=== PATIENT | male | born 1955 ===

== ENCOUNTER 2017-10-27 02:58 | Inpatient (IN) | payer MEDICAID ==
--- NOTE | 2017-10-27 03:26 | ED PDOC ---
HPI: Abdomen Time Seen by Provider: 10/27/17 03:04 Chief Complaint (Nursing): Abdominal Pain Chief Complaint (Provider): Left Flank Pain History Per: Patient History/Exam Limitations: no limitations Onset/Duration Of Symptoms: Mins (x30) Current Symptoms Are (Timing): Still Present Pain Scale Rating Of: 5 Additional Complaint(s): 62 y/o male with a PMHx of kidney stones presenting for evaluation of left sided flank pain x30 minutes prior to arrival. Patient states pain is a 5/ 10 and denies any associated nausea, vomiting, or urinary symptoms. Patient states that he had been walking and carrying a heavy backpack today and feels it may have contributed to the onset of his pain. Provider suspects patient may be undomiciled. PMD: [facility] Provider Past Medical History Reviewed: Historical Data, Nursing Documentation, Vital Signs Vital Signs: Last Vital Signs Temp 97.7 F 10/27/17 03:00 Pulse 95 H 10/27/17 03:00 Resp 16 10/27/17 03:00 BP 126/79 10/27/17 03:00 Pulse Ox 98 10/27/17 03:29 - Medical History PMH: Kidney Stones - Surgical History Surgical History: No Surg Hx - Family History Family History: States: Unknown Family Hx - Social History Current smoker - smoking cessation education provided: No Alcohol: None Drugs: Denies - Allergies Allergies/Adverse Reactions: Allergies Allergy/AdvReac Type Severity Reaction Status Date / Time No Known Allergies Allergy Verified 10/27/17 03:07 Review of Systems ROS Statement: Except As Marked, All Systems Reviewed And Found Negative Gastrointestinal: Negative for: Nausea, Vomiting Genitourinary Male: Negative for: Dysuria, Frequency, Incontinence Musculoskeletal: Positive for: Other (left flank) Physical Exam - Reviewed Nursing Documentation Reviewed: Yes Vital Signs Reviewed: Yes - Physical Exam Appears: Positive for: Non-toxic, No Acute Distress Head Exam: Positive for: ATRAUMATIC, NORMAL INSPECTION, NORMOCEPHALIC Skin: Positive for: Normal Color, Warm, Dry. Negative for: Rash Eye Exam: Positive for: EOMI, Normal appearance, PERRL Neck: Positive for: Normal, Painless ROM, Supple Cardiovascular/Chest: Positive for: Regular Rate, Rhythm. Negative for: Murmur Respiratory: Positive for: Normal Breath Sounds. Negative for: Respiratory Distress Gastrointestinal/Abdominal: Positive for: Normal Exam, Soft. Negative for: Tenderness Back: Positive for: Normal Inspection. Negative for: L CVA Tenderness, R CVA Tenderness, Vertebral Tenderness Extremity: Positive for: Normal ROM. Negative for: Pedal Edema, Deformity Neurologic/Psych: Positive for: Alert, Oriented. Negative for: Motor/Sensory Deficits - ECG O2 Sat by Pulse Oximetry: 98 (RA) Pulse Ox Interpretation: Normal Medical Decision Making Medical Decision Makin:15 Impression: 62 y/o male with left flank pain Plan: -Urine drug screen -Urine dipstick -Motrin 600mg PO -Accucheck -Urinalysis -Reevaluation 04:30 Urine does not indicate any evidence of kidney stones. Upon provider noting patient of results and discharge status, patient requested to speak to mental health health professional. 05:50 As per crisis, patient will require admission for depression. In providers opinion patient is bed-seeking and malingering as he admitted to being homeless. Patient medical stable for psychiatric admission ----- Scribe Attestation: Documented by Yaya Graham, acting as a scribe for Casey Hart MD. Provider Scribe Attestation: All medical record entries made by the Scribe were at my direction and personally dictated by me. I have reviewed the chart and agree that the record accurately reflects my personal performance of the history, physical exam, medical decision making, and the department course for this patient. I have also personally directed, reviewed, and agree with the discharge instructions and disposition. Disposition - Patient ED Disposition Is Patient to be Admitted: Yes - Disposition Disposition Time: 05:50 Forms: Clutter (Lithuanian) - Pt Status Changed To: Hospital Disposition Of: Inpatient - Admit Certification Admit to Inpatient:: After my assessment, the patient will require hospitalization for at least two midnights. This is because of the severity of symptoms shown, intensity of services needed, and/or the medical risk in this patient being treated as an outpatient.
[2017-10-27 03:59] LABS: SQUAMOUS EPITHIAL 3 /hpf (0-5); URINE BILIRUBIN NEGATIVE (NEGATIVE); URINE BLOOD NEGATIVE (NEGATIVE); URINE CALCIUM OXALATE CRYSTALS OCC /hpf (<OCC); URINE CLARITY CLOUDY (Clear); URINE COLOR AMBER (YELLOW); URINE GLUCOSE (UA) NEG (Normal); URINE LEUKOCYTE ESTERASE NEG Leu/uL (Negative); URINE PROTEIN 30 mg/dL (NEGATIVE)
[2017-10-27 04:18] LABS: BARBITURATES, UR NEGATIVE (NEGATIVE); BENZODIAZEPINES, UR NEGATIVE (NEGATIVE); OPIATES, UR NEGATIVE (NEGATIVE); PHENCYCLIDINE, UR NEGATIVE (NEGATIVE)
[2017-10-27 06:58] LABS: BASO % 0.3 % (0.0-2.0); EOS # 0.1 K/uL (0.0-0.7); EOS % 0.8 % (0.0-4.0); HEMOGLOBIN 14.8 g/dL (12.0-18.0); LYMPH # 2.9 K/uL (1.0-4.3); LYMPH % 25.1 % (20.0-40.0); MEAN CELL VOLUME 97.4 fl (80.0-94.0); MEAN CORPUSCULAR HEMOGLOBIN 32.9 pg (27.0-31.0); MEAN CORPUSCULAR HGB CONC 33.8 g/dL (33.0-37.0); MEAN PLATELET VOLUME 7.4 fl (7.2-11.7); MONO % 8.8 % (0.0-10.0); NEUT # 7.6 K/uL (1.8-7.0); RBC 4.49 Mil/uL (4.40-5.90); RED CELL DISTRIBUTION WIDTH 13.4 % (11.5-14.5); WHITE BLOOD COUNT 11.7 K/uL (4.8-10.8)
[2017-10-27 08:16] VITALS: O2SAT 97
[2017-10-27] MEDS ORDERED: DiphenhydrAMINE 50 mg/ml Inj IM PRN (11:09)
[2017-10-27] MEDS ORDERED: Magnesium Hydroxide Susp 30 ml UD PO PRN (11:09)
[2017-10-27] MEDS ORDERED: Alum-Mag Hydrox-Simethicone Susp (30 mL) PO PRN (11:09)
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
--- NOTE | 2017-10-27 11:24 | CARD ---
APPROVED REPORT <Conclusion> Normal sinus rhythm Normal ECG
--- NOTE | 2017-10-27 14:47 | PCM.BM ---
<Law Pop - Last Filed: 10/27/17 14:45> Treatment Plan Problems - Problems identified on initial assessmt Hopelessness/Helplessness Date Initiated: 10/27/17 Time Initiated: 14:46 Assessment reference: NA Status: Active Self Harm Date Initiated: 10/27/17 Time Initiated: 14:49 Assessment reference: NA Status: Active Suicidal Ideation Date Initiated: 10/27/17 Time Initiated: 14:50 Assessment reference: NA Status: Active Treatment assets and liabiliti Patient Assests: cooperative, educated, ADL independent, physically healthy Patient Liabilities: physical pain, financial problems, other (recent loss) - Milieu Protocol Maintain good personal hygiene: every shift Encourage regular showers, every shift Remind patient to perform daily oral care, every shift Assist patient to perform ADL's Maintain personal safety: every shift Educate patient to report safety concerns to staff, every shift Monitor environment for contraband/sharps Medication safety: Monitor for expected outcome, potential side effects: every shift, Assess barriers to learning: every shift, Assess readiness for medication education: every shift Milieu Narrative: paxil 520mg qhs group and supportive therapy Discharge/Continuing Care - Treatment Team Participation Patient/Family/SO Statement: paxil 520mg qhs group and supportive therapy <Elle Moctezuma - Last Filed: 10/28/17 08:13> - Diagnosis (1) Major depressive disorder Status: Acute Interventions: Medication management, Individual and group therapy, Psychoeducation 10/28/17 08:14 <Radha Gloria - Last Filed: 10/29/17 11:15> Family Contact Family contact: Patient agrees to contact, Family has been contacted by patient , Telephone contact initiated by staff Family contact name: Garrick Yo - significant other Family contacted how many times per week?: 2 Family contact comment: [phone] - Goals for Treatment Patient goals for treatment: Pt to be encouraged to attend activity and clinical groups 3-5x per week to identify at least 2 contributing factors to depression and suicide attempt. Psycho-education to be provided to patient/ family regarding benefits of medications and treatment adherence. Pt to be encouraged to participate in group milieu to develop effective coping skills to reduce depression and free of suicide ideation. Coordinate discharge resource needs by providing referral for psychiatric treatment follow up in the community. Discharge/Continuing Care - Education Needs Education Needs: Patient Medication, Patient Diagnosis/Disease Process, Patient Coping Skills, Patient Placement options, Patient Community resources, Patient Activities of Daily Living, Patient Health Practices/Safety, Patient Personal Hygiene/Grooming, Patient Aftercare Safety Plan - Discharge Discharge Criteria: Free of Suicidal thoughts, Free of agitation, Normal sleep pattern, Ability to care for self, Reduction of target symptoms Discharge to:: Nursing Home - Additional Comments 10/29/17 11:06 Pt seen and discussed in team meeting. Reason for admission reviewed and discussed. Pt reported being admitted due to suicide ideation and depression. Pt reported at the moment he feels "sleepy" and "alright." When asked to provide further information, pt stated "I don't know what it is that I'm feeling right now." Pt denied active HI. Pt expressed vague suicide ideation stating "they come and go." Pt reported having no active plan. Pt's social and medical issues reviewed. Pt reported he resides in [place], [place] but was in [place] visiting his friend. Pt reported he does not know yet if he will be returning to [place] or remain in [place]. Pt is currently homeless. Pt's medications reviewed and discussed. Tx plan reviewed and discussed, pt is agreeable. SW to continue to follow case. - Treatment Team Participation Discussed with Family/SO: No Was Patient/Family/SO present at Treatment Team Meeting: Yes
--- NOTE | 2017-10-27 18:20 | CP.PCM.CON ---
History of Present Illness - History of Present Illness History of Present Illness: 62 yo male with history of depression admitted to [facility] because of suicidal ideation. Review of Systems - Review of Systems All systems: reviewed and no additional remarkable complaints except (aside from those mentioned above, 12 point system review were negative by me) Past Patient History - Tetanus Immunizations Tetanus Immunization: Unknown - Past Social History Smoking Status: Former Smoker Chewing Tobacco Use: No Cigar Use: No Alcohol: Social Drugs: Denies - CARDIAC Hx Cardiac Disorders: No Hx Hypertension: No - PULMONARY Hx Tuberculosis: No - NEUROLOGICAL HX Cerebrovascular Accident: No Hx Seizures: No - RENAL Hx Chronic Kidney Disease: Yes - HEMATOLOGICAL/ONCOLOGICAL Hx Cancer: No Hx Human Immunodeficiency Virus (HIV): No - INTEGUMENTARY Hx Dermatological Problems: No - GASTROINTESTINAL Other/Comment: appendectomy - GENITOURINARY/GYNECOLOGICAL Hx Sexually Transmitted Disorders: No - PSYCHIATRIC Hx Depression: Yes Hx Substance Use: No - SURGICAL HISTORY Hx Surgeries: Yes Hx Appendectomy: Yes - ANESTHESIA Hx Anesthesia: Yes Hx Anesthesia Reactions: No Hx Malignant Hyperthermia: No Meds Allergies/Adverse Reactions: Allergies Allergy/AdvReac Type Severity Reaction Status Date / Time No Known Allergies Allergy Verified 10/27/17 03:07 - Medications Medications: Current Medications Acetaminophen (Tylenol 325mg Tab) 325 mg PO Q4 PRN PRN Reason: Pain, moderate (4-7) Al Hydrox/Mg Hydrox/Simethicone (Maalox Plus 30 Ml) 30 ml PO Q4 PRN PRN Reason: Dyspepsia Diphenhydramine HCl (Benadryl) 50 mg IM Q6 PRN PRN Reason: Extrapyramidal S/S Unable PO Diphenhydramine HCl (Benadryl) 50 mg PO Q6 PRN PRN Reason: Extrapyramidal Symptoms Haloperidol (Haldol) 2 mg PO Q4 PRN PRN Reason: Agitation Haloperidol Lactate (Haldol) 2 mg IM Q4 PRN PRN Reason: Agitation, Unable to Take PO Lorazepam (Ativan) 1 mg PO Q8 PRN PRN Reason: Anxiety/Agitation Lorazepam (Ativan) 1 mg IM Q4 PRN PRN Reason: Anxiety/Agitation,Unable PO Magnesium Hydroxide (Milk Of Magnesia) 30 ml PO HS PRN PRN Reason: Constipation Paroxetine HCl (Paxil) 20 mg PO HS ROEL Physical Exam - Constitutional Appears: No Acute Distress - Head Exam Head Exam: ATRAUMATIC - Eye Exam Eye Exam: absent: Scleral icterus - ENT Exam ENT Exam: Mucous Membranes Moist - Neck Exam Neck exam: Negative for: Meningismus - Respiratory Exam Respiratory Exam: absent: Rales, Rhonchi, Wheezes, Respiratory Distress - Cardiovascular Exam Cardiovascular Exam: REGULAR RHYTHM, +S1, +S2 - GI/Abdominal Exam GI & Abdominal Exam: Soft. absent: Tenderness - Rectal Exam Rectal Exam: Deferred - Extremities Exam Extremities exam: Negative for: calf tenderness, pedal edema - Back Exam Back exam: NORMAL INSPECTION - Neurological Exam Neurological exam: Alert, Oriented x3 - Psychiatric Exam Psychiatric exam: Normal Affect - Skin Skin Exam: Dry, Intact Results - Vital Signs Recent Vital Signs: Last Vital Signs Temp 97.7 F 10/27/17 16:47 Pulse 68 10/27/17 16:47 Resp 19 10/27/17 16:47 BP 122/61 10/27/17 16:47 Pulse Ox 97 10/27/17 08:00 - Labs Result Diagrams: 10/27/17 06:40 Labs: Laboratory Results - last 24 hr 10/27/17 10/27/17 10/27/17 03:33 03:35 03:35 WBC RBC Hgb Hct MCV MCH MCHC RDW Plt Count MPV Neut % (Auto) Lymph % (Auto) [place] % (Auto) Eos % (Auto) Baso % (Auto) Neut # (Auto) Lymph # (Auto) [place] # (Auto) Eos # (Auto) Baso # (Auto) POC Glucose (mg/dL) 97 Urine Color Jody Urine Clarity Cloudy Urine pH 5.0 Ur Specific [place] 1.030 Urine Protein 30 Urine Glucose (UA) Neg Urine Ketones 20 Urine Blood Negative Urine Nitrate Negative Urine Bilirubin Negative Urine Urobilinogen 4.0 Ur Leukocyte Esterase Neg Urine RBC (Auto) 5 H Urine Microscopic WBC 4 Ur Squamous Epith Cells 3 Calcium Oxalate Crystal Occ H Hyaline Casts 11-20 H Urine Opiates Screen Negative Urine Methadone Screen Negative Ur Barbiturates Screen Negative Ur Phencyclidine Scrn Negative Ur Amphetamines Screen Negative U Benzodiazepines Scrn Negative U Oth Cocaine Metabols Negative U Cannabinoids Screen Negative Alcohol, Quantitative 10/27/17 10/27/17 06:40 06:40 WBC 11.7 H RBC 4.49 Hgb 14.8 Hct 43.7 MCV 97.4 H MCH 32.9 H MCHC 33.8 RDW 13.4 Plt Count 242 MPV 7.4 Neut % (Auto) 65.0 Lymph % (Auto) 25.1 [place] % (Auto) 8.8 Eos % (Auto) 0.8 Baso % (Auto) 0.3 Neut # (Auto) 7.6 H Lymph # (Auto) 2.9 [place] # (Auto) 1.0 H Eos # (Auto) 0.1 Baso # (Auto) 0.0 POC Glucose (mg/dL) Urine Color Urine Clarity Urine pH Ur Specific [place] Urine Protein Urine Glucose (UA) Urine Ketones Urine Blood Urine Nitrate Urine Bilirubin Urine Urobilinogen Ur Leukocyte Esterase Urine RBC (Auto) Urine Microscopic WBC Ur Squamous Epith Cells Calcium Oxalate Crystal Hyaline Casts Urine Opiates Screen Urine Methadone Screen Ur Barbiturates Screen Ur Phencyclidine Scrn Ur Amphetamines Screen U Benzodiazepines Scrn U Oth Cocaine Metabols U Cannabinoids Screen Alcohol, Quantitative < 10 Assessment & Plan (1) Suicidal ideation Status: Acute Comment: psyche is managing
--- NOTE | 2017-10-28 07:46 | PCM.PYCHPN ---
Psychiatric Progress Note - Psychiatric Progress Note Patient seen today, length of contact: Patient evaluated, case discussed with team, chart reviewed Patient Chief Complaint: "I'm depressed." Problems Identified/Issues Discussed: Patient continues to report feeling depressed w/ sleep/appetite disturbances. He denies acute ideation to harm self or others. He had diarrhea last night, possibly secondary to Paxil; will continue to observe clinically. Medication Change: No Medical Record Reviewed: Yes Consults ordered or reviewed: Medicine consult Mental Status Examination - Cognitive Function Orientation: Person, Place, Situation, Time Memory: Intact Attention: WNL Concentration: WNL Association: WNL Fund of Knowledge: [facility] Decription of patient's judgement and insights: Fair I/J - Mood Mood: Depressed, Anxious - Affect Affect: Constricted, Depressed - Speech Speech: Appropriate - Formal Thought Process Formal Thought Process: No Impairment Psychotic Thoughts and Behaviors: No AH/VH/paranoia/delusions - Suicidal Ideation Suicidal Ideation: No - Homicidal Ideation Homicidal Ideation: No Goal/Treatment Plan - Goal/Treatment Plan Need for Continued Stay: Remain at risks for inpatient hospitalization, Severe depression anxiety, Discharge may exacerbated symptoms Progress Toward Problem(s) and Goals/Treatment Plan: Major Depressive Disorder -Individual and group therapy -Continue Paxil -Medicine consult -Disposition planning Estimated Date of D/C: 11/02/17
[2017-10-28 08:31] LABS: BASO % 0.6 % (0.0-2.0); EOS # 0.2 K/uL (0.0-0.7); EOS % 2.8 % (0.0-4.0); HEMOGLOBIN 14.9 g/dL (12.0-18.0); LYMPH # 2.5 K/uL (1.0-4.3); LYMPH % 35.7 % (20.0-40.0); MEAN CELL VOLUME 97.2 fl (80.0-94.0); MEAN CORPUSCULAR HEMOGLOBIN 32.9 pg (27.0-31.0); MEAN CORPUSCULAR HGB CONC 33.8 g/dL (33.0-37.0); MEAN PLATELET VOLUME 7.4 fl (7.2-11.7); MONO # 0.6 K/uL (0.0-0.8); MONO % 8.6 % (0.0-10.0); NEUT # 3.6 K/uL (1.8-7.0); NEUT % 52.3 % (50.0-75.0); NRBC % 0.3 % (0.0-0.0); RBC 4.54 Mil/uL (4.40-5.90); RED CELL DISTRIBUTION WIDTH 13.1 % (11.5-14.5)
[2017-10-28 08:42] LABS: ALB/GLOB RATIO 1.5 (1.0-2.1); ALT/SGPT 36 U/L (21-72); AST/SGOT 35 U/L (17-59); BLOOD UREA NITROGEN 15 mg/dl (9-20); CALCIUM 8.8 mg/dL (8.4-10.2); GFR AFRICAN-AMERICAN > 60; GFR NON-AFRICAN AMERICAN > 60; HDL CHOLESTEROL 29 MG/DL (30-70)
[2017-10-28 08:53] LABS: LDL CHOLESTEROL 78 mg/dL (0-129)
[2017-10-28 08:55] LABS: T4 7.84 ug/dl (5.5-11.0)
--- NOTE | 2017-10-29 10:33 | PCM.PYCHPN ---
Psychiatric Progress Note - Psychiatric Progress Note Patient seen today, length of contact: Patient evaluated, case discussed with team, chart reviewed Patient Chief Complaint: "I'm depressed." Problems Identified/Issues Discussed: Patient continues to report feeling depressed w/ sleep + appetite disturbances. He reports passive suicidal ideation w/o active plan or intent. He had 2 episodes of diarrhea last night. He wants to continue taking Paxil at this time. Medication Change: No Medical Record Reviewed: Yes Consults ordered or reviewed: Medicine consult Mental Status Examination - Cognitive Function Orientation: Person, Place, Situation, Time Memory: Intact Attention: WNL Concentration: WNL Association: [facility] Fund of Knowledge: [facility] Decription of patient's judgement and insights: Fair I/J - Mood Mood: Depressed, Anxious - Affect Affect: Constricted, Depressed - Speech Speech: Appropriate - Formal Thought Process Formal Thought Process: No Impairment Psychotic Thoughts and Behaviors: No AH/VH/paranoia/delusions - Suicidal Ideation Suicidal Ideation: Yes Plan: Passive SI w/o active plan or intent - Homicidal Ideation Homicidal Ideation: No Goal/Treatment Plan - Goal/Treatment Plan Need for Continued Stay: Remain at risks for inpatient hospitalization, Severe depression anxiety, Discharge may exacerbated symptoms Progress Toward Problem(s) and Goals/Treatment Plan: Major Depressive Disorder -Individual and group therapy -Continue Paxil -Medicine consult -Disposition planning Estimated Date of D/C: 11/02/17
--- NOTE | 2017-10-30 12:02 | PCM.PYCHPN ---
Psychiatric Progress Note - Psychiatric Progress Note Patient seen today, length of contact: Patient evaluated, case discussed with team, chart reviewed Patient Chief Complaint: "I'm depressed." Problems Identified/Issues Discussed: Patient denies current diarrhea, but does report feeling lightheaded. He has improved sleep after he took Trazodone last night. He continues to report feeling depressed, but states that his mood is improving and denies acute SI/ HI. Medication Change: No Medical Record Reviewed: Yes Consults ordered or reviewed: Medicine consult Mental Status Examination - Cognitive Function Orientation: Person, Place, Situation, Time Memory: Intact Attention: WNL Concentration: WNL Association: [facility] Fund of Knowledge: [facility] Decription of patient's judgement and insights: Fair I/J - Mood Mood: Depressed, Anxious - Affect Affect: Constricted, Depressed - Speech Speech: Appropriate - Formal Thought Process Formal Thought Process: No Impairment Psychotic Thoughts and Behaviors: No AH/VH/paranoia/delusions - Suicidal Ideation Suicidal Ideation: No - Homicidal Ideation Homicidal Ideation: No Goal/Treatment Plan - Goal/Treatment Plan Need for Continued Stay: Remain at risks for inpatient hospitalization, Severe depression anxiety, Discharge may exacerbated symptoms Progress Toward Problem(s) and Goals/Treatment Plan: Major Depressive Disorder -Individual and group therapy -Continue Paxil -Medicine consult -Disposition planning Estimated Date of D/C: 11/02/17
--- NOTE | 2017-10-31 09:52 | PCM.PYCHPN ---
Psychiatric Progress Note - Psychiatric Progress Note Patient seen today, length of contact: Patient evaluated, case discussed with team, chart reviewed Patient Chief Complaint: "I'm depressed." Problems Identified/Issues Discussed: No acute medical complaints. He reports improved sleep w/ Trazodone. He continues to report feeling depressed, but states that his mood is improving and denies acute SI/HI. Medication Change: No Medical Record Reviewed: Yes Consults ordered or reviewed: Medicine consult Mental Status Examination - Cognitive Function Orientation: Person, Place, Situation, Time Memory: Intact Attention: WNL Concentration: WNL Association: WNL Fund of Knowledge: [facility] Decription of patient's judgement and insights: Fair I/J - Mood Mood: Depressed, Anxious - Affect Affect: Constricted, Depressed - Speech Speech: Appropriate - Formal Thought Process Formal Thought Process: No Impairment Psychotic Thoughts and Behaviors: No AH/VH/paranoia/delusions - Suicidal Ideation Suicidal Ideation: No - Homicidal Ideation Homicidal Ideation: No Goal/Treatment Plan - Goal/Treatment Plan Need for Continued Stay: Remain at risks for inpatient hospitalization, Severe depression anxiety, Discharge may exacerbated symptoms Progress Toward Problem(s) and Goals/Treatment Plan: Major Depressive Disorder -Individual and group therapy -Continue Paxil -Medicine consult -Disposition planning Estimated Date of D/C: 11/03/17
--- NOTE | 2017-11-01 07:27 | PCM.PYCHPN ---
Psychiatric Progress Note - Psychiatric Progress Note Patient seen today, length of contact: Patient evaluated, case discussed with team, chart reviewed Patient Chief Complaint: "I'm feeling better." Problems Identified/Issues Discussed: Patient reports that his mood is improving. He has improved sleep and is more hopeful for the future. Denies acute AH/VH/SI/HI. No adverse effects to medications reported. Medication Change: No Medical Record Reviewed: Yes Consults ordered or reviewed: Medicine consult Mental Status Examination - Cognitive Function Orientation: Person, Place, Situation, Time Memory: Intact Attention: WNL Concentration: WNL Association: WN Fund of Knowledge: [facility] Decription of patient's judgement and insights: Fair I/J - Mood Mood: Depressed - Affect Affect: Broad - Speech Speech: Appropriate - Formal Thought Process Formal Thought Process: No Impairment Psychotic Thoughts and Behaviors: No AH/VH/paranoia/delusions - Suicidal Ideation Suicidal Ideation: No - Homicidal Ideation Homicidal Ideation: No Goal/Treatment Plan - Goal/Treatment Plan Need for Continued Stay: Severe depression anxiety Progress Toward Problem(s) and Goals/Treatment Plan: Major Depressive Disorder -Individual and group therapy -Continue Paxil and Trazodone -Medicine consult -Disposition planning- Discharge tomorrow Estimated Date of D/C: 11/02/17
[2017-11-02 06:13] VITALS: BP 124/83; PULSE 60; RESP 18; TEMP 97.7
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
== END 2017-11-02 13:40 | disposition home or self-care (01) | DRG 430 ==
LOC: H.ER 02:58 → H.ERHOLD 05:51 → H.PSYCH 09:00 → H.STEP 12:45
PROVIDERS: ADMIT Psychiatry & Neurology Psychiatry; ATTEND Psychiatry & Neurology Psychiatry
DX: F33.2 Major depressive disorder, recurrent severe without psychotic features (principal); N18.9 Chronic kidney disease, unspecified; Z91.5 Personal history of self-harm; Z59.0 Homelessness; Z87.442 Personal history of urinary calculi; Z87.891 Personal history of nicotine dependence; Z90.49 Acquired absence of other specified parts of digestive tract; R45.851 Suicidal ideations

== ENCOUNTER 2017-11-11 18:52 | Inpatient (IN) | payer MEDICAID ==
[2017-11-11 18:56] VITALS: O2SAT 96
--- NOTE | 2017-11-11 19:08 | ED PDOC ---
Psych Transfer Clearance - Clearance Statement Clearance Statement: Reviewed vital signs, lab results and transfer papers. Patient clinically stable for psychiatric admission.
[2017-11-11] MEDS ORDERED: Magnesium Hydroxide Susp 30 ml UD PO PRN (20:27)
[2017-11-11] MEDS ORDERED: Alum-Mag Hydrox-Simethicone Susp (30 mL) PO PRN (20:27)
[2017-11-11] MEDS ORDERED: DiphenhydrAMINE 50 mg/ml Inj IM PRN (20:27)
[2017-11-12 07:05] LABS: T4 8.6 ug/dl (5.5-11.0)
[2017-11-12 07:18] LABS: T3 1.14 nmol/L (1.49-2.60)
--- NOTE | 2017-11-12 10:39 | PCM.PSYCH ---
Initial Psychiatric Evaluation - Initial Psychiatric Evaluation Type of Admission: Voluntary Legal Status: Capacity Chief Complaint (in patient's own words): "I want to leave." Patient's Reaction to Hospitalization: 62 yo male w/ h/o possible mood disorder, homeless, presents s/p stating that he attempted suicide by overdosing on pills. Patient has given several different conflicting stories. He states that he does not know how many pills he took or which pills. He was recently hospitalized on [facility] and was discharged stating he would take a flight to [place] that day. Now he states he took a flight to [place] and then drove back up with friends. Patient is very irritable when confronted w/ the inconsistencies in his story. He is now demanding to be discharged. He did not take any medications when he was discharged from the last hospitalization or fill the prescription. He is now refusing psychiatric medications and treatment and submitted a 48 hr letter requesting to be discharged. He denies acute depression/anxiety/AH/VH/paranoia/ delusions/SI/HI. Current Medications: Active Medications Generic Name Dose Route Start Last Admin Trade Name Kiran PRN Reason Stop Dose Admin Acetaminophen 650 mg 11/11/17 20:27 Tylenol 325mg Tab PO Q4 PRN pain 4-7 Al Hydrox/Mg Hydrox/Simethicone 30 ml 11/11/17 20:27 Maalox Plus 30 Ml PO Q4 PRN Dyspepsia Diphenhydramine HCl 50 mg 11/11/17 20:27 Benadryl IM Q6 PRN Extrapyramidal S/S Unable PO Diphenhydramine HCl 50 mg 11/11/17 20:27 Benadryl PO Q6 PRN Extrapyramidal Symptoms Diphenhydramine HCl 50 mg 11/11/17 20:27 Benadryl PO HS PRN Sleep Haloperidol 5 mg 11/11/17 20:27 Haldol PO Q4 PRN Agitation Haloperidol Lactate 5 mg 11/11/17 20:27 Haldol IM Q4 PRN Agitation, Unable to Take PO Lorazepam 1 mg 11/11/17 20:32 Ativan PO Q8 PRN Agitation Lorazepam 1 mg 11/11/17 20:33 Ativan IM Q8 PRN Agitation Magnesium Hydroxide 30 ml 11/11/17 20:27 Milk Of Magnesia PO HS PRN Constipation Paroxetine HCl 20 mg 11/11/17 22:00 11/11/17 21:05 Paxil PO 20 mg HS ROEL Administration Trazodone HCl 50 mg 11/11/17 22:00 11/11/17 21:04 Desyrel PO 50 mg HS ROEL Administration Past Psychiatric History - Past Psychiatric History Previous Treatment History: Inpatient Pertinent Medical Hx (Current Medical&Sleep Prob, Allergies): Allergies Allergy/AdvReac Type Severity Reaction Status Date / Time No Known Allergies Allergy Verified 11/11/17 18:54 PARoxetine [Paxil] 20 mg PO HS #30 tab 11/01/17 traZODone [Desyrel] 50 mg PO HS #30 tab 11/01/17 Review of Systems - Psychiatric Psychiatric: Suicidal Ideation (Reports recent suicide attempt; unlikely true) Mental Status Examination - Personal Presentation Personal Presentation: Looks stated age - Affect Affect: Other (Irritable) - Motor Activity Motor Activity: Calm - Reliability in Providing Information Reliability in Providing Information: Other (Poor: Intentionally manipulative and evasive) - Speech Speech: Organized - Mood Mood: Neutral - Formal Thought Process Formal Thought Process: No Impairment - Hallucinations/Delusions Additional comments: No AH/VH/paranoia/delusions - Obsessions/Compulsions Obsessions: No Compulsions: No - Cognitive Functions Orientation: Person, Place, Situation, Time Sensorium: Alert Attention/Concentration: Attentive Judgement: Intact, as evidence by: Other (Judgment intact enought to manipulate and exaggerate symptoms to gain psychiatric admission) Memory: Recent intact, as evidence by: Ability to recall events of the day, Remote intact, as evidenced by: Abilit to recall sig. life events, Remote intact , as evidenced by: Ability to recall historical events - Risk Risk: Suicidal - Strength & Assets Inventory Strength & Assets Inventory: Intelligence - Limitations Limitations: Other (Homeless) DSM 5 DX - DSM 5 DSM 5 Diagnosis: Malingering; r/o Mood Disorder NOS - Recommended/Plan of Treatment Treatment Recommendations and Plan of Treatment: Malingering; r/o Mood Disorder NOS -Will admit to psychiatry unit and observe overnight for safety -Patient submitted a 48 hour letter requesting to be discharged -Patient refusing all psychiatric medications and treatment at this time -Medicine consult
--- NOTE | 2017-11-12 15:43 | CP.PCM.CON ---
History of Present Illness - History of Present Illness History of Present Illness: 62 yo male with no significant PMH admitted in psyche unit because of suicidal ideation. Review of Systems - Review of Systems All systems: reviewed and no additional remarkable complaints except (aside from those mentioned above, 12 point system review were negative by me) Past Patient History - Tetanus Immunizations Tetanus Immunization: Unknown - Past Social History Smoking Status: Former Smoker Chewing Tobacco Use: No Cigar Use: No Alcohol: Social Drugs: Denies - CARDIAC Hx Cardiac Disorders: No Hx Hypertension: No - PULMONARY Hx Respiratory Disorders: No Hx Tuberculosis: No - NEUROLOGICAL Hx Neurological Disorder: No HX Cerebrovascular Accident: No Hx Seizures: No - HEENT Hx HEENT Problems: No - RENAL Hx Kidney Stones: Yes - HEMATOLOGICAL/ONCOLOGICAL Hx Blood Disorders: No Hx Cancer: No Hx Human Immunodeficiency Virus (HIV): No - INTEGUMENTARY Hx Dermatological Problems: No - GASTROINTESTINAL Other/Comment: appendectomy - GENITOURINARY/GYNECOLOGICAL Hx Genitourinary Disorders: No Hx Sexually Transmitted Disorders: No - PSYCHIATRIC Hx Depression: Yes Hx Substance Use: No - SURGICAL HISTORY Hx Surgeries: Yes Hx Appendectomy: Yes - ANESTHESIA Hx Anesthesia: Yes Hx Anesthesia Reactions: No Hx Malignant Hyperthermia: No Meds Allergies/Adverse Reactions: Allergies Allergy/AdvReac Type Severity Reaction Status Date / Time No Known Allergies Allergy Verified 11/11/17 18:54 - Medications Medications: Current Medications Acetaminophen (Tylenol 325mg Tab) 650 mg PO Q4 PRN PRN Reason: pain 4-7 Al Hydrox/Mg Hydrox/Simethicone (Maalox Plus 30 Ml) 30 ml PO Q4 PRN PRN Reason: Dyspepsia Diphenhydramine HCl (Benadryl) 50 mg IM Q6 PRN PRN Reason: Extrapyramidal S/S Unable PO Diphenhydramine HCl (Benadryl) 50 mg PO Q6 PRN PRN Reason: Extrapyramidal Symptoms Diphenhydramine HCl (Benadryl) 50 mg PO HS PRN PRN Reason: Sleep Haloperidol (Haldol) 5 mg PO Q4 PRN PRN Reason: Agitation Haloperidol Lactate (Haldol) 5 mg IM Q4 PRN PRN Reason: Agitation, Unable to Take PO Lorazepam (Ativan) 1 mg PO Q8 PRN PRN Reason: Agitation Lorazepam (Ativan) 1 mg IM Q8 PRN PRN Reason: Agitation Magnesium Hydroxide (Milk Of Magnesia) 30 ml PO HS PRN PRN Reason: Constipation Physical Exam - Constitutional Appears: No Acute Distress - Head Exam Head Exam: ATRAUMATIC - Eye Exam Eye Exam: absent: Scleral icterus - ENT Exam ENT Exam: Mucous Membranes Moist - Neck Exam Neck exam: Negative for: Meningismus - Respiratory Exam Respiratory Exam: absent: Rhonchi, Wheezes, Respiratory Distress - Cardiovascular Exam Cardiovascular Exam: REGULAR RHYTHM, +S1, +S2 - GI/Abdominal Exam GI & Abdominal Exam: Soft. absent: Tenderness - Rectal Exam Rectal Exam: Deferred - Extremities Exam Extremities exam: Negative for: pedal edema - Back Exam Back exam: NORMAL INSPECTION - Neurological Exam Neurological exam: Alert, Oriented x3 - Psychiatric Exam Psychiatric exam: Normal Affect - Skin Skin Exam: Dry, Intact Results - Vital Signs Recent Vital Signs: Last Vital Signs Temp 97.1 F L 11/12/17 06:00 Pulse 69 11/12/17 06:00 Resp 18 11/12/17 06:00 BP 105/61 11/12/17 06:00 Pulse Ox 96 11/11/17 18:55 - Labs Labs: Laboratory Results - last 24 hr 11/12/17 06:10 Triglycerides 120 Cholesterol 112 LDL Cholesterol Direct 62 HDL Cholesterol 29 L Thyroxine (T4) 8.60 Total T3 1.14 L TSH 3rd Generation 0.65 Assessment & Plan (1) Suicidal ideation Status: Acute Comment: psyche is managing
--- NOTE | 2017-11-12 22:43 | PCM.BM ---
<Justin Millan - Last Filed: 11/12/17 22:41> Treatment Plan Problems - Problems identified on initial assessmt Hopelessness/Helplessness Date Initiated: 11/11/17 Time Initiated: 20:30 Assessment reference: HP, NA Status: Active Feelings of Worthlessness Date Initiated: 11/11/17 Time Initiated: 20:30 Assessment reference: HP, NA Status: Active Treatment assets and liabiliti Patient Assests: cooperative, educated, ADL independent, physically healthy Patient Liabilities: other (homeless) - Milieu Protocol Maintain good personal hygiene: daily Encourage regular showers, daily Remind patient to perform daily oral care, daily Assist patient to perform ADL's Maintain personal safety: every shift Educate patient to report safety concerns to staff, every shift Monitor environment for contraband/sharps Medication safety: Monitor for expected outcome, potential side effects: every shift, Assess barriers to learning: every shift, Assess readiness for medication education: every shift Milieu Narrative: Malingering; r/o Mood Disorder NOS -Will admit to psychiatry unit and observe overnight for safety -Patient submitted a 48 hour letter requesting to be discharged -Patient refusing all psychiatric medications and treatment at this time -Medicine consult Discharge/Continuing Care - Treatment Team Participation Patient/Family/SO Statement: Malingering; r/o Mood Disorder NOS -Will admit to psychiatry unit and observe overnight for safety -Patient submitted a 48 hour letter requesting to be discharged -Patient refusing all psychiatric medications and treatment at this time -Medicine consult <Elle Moctezuma - Last Filed: 11/13/17 12:23> - Diagnosis (1) Mood disorder Status: Acute Interventions: Patient offered medication management, Individual and group therapy, Psychoeducation 11/13/17 12:24 <Radha Gloria - Last Filed: 11/13/17 12:25> Family Contact Family involvement: Patient does not wish Family/SO involvement - Goals for Treatment Patient goals for treatment: Pt to be encouraged to attend activity and clinical groups 3-5x per week to identify at least 2 contributing factors to depression and suicide attempt. Psycho-education to be provided to patient/ family regarding benefits of medications and treatment adherence. Pt to be encouraged to participate in group milieu to develop effective coping skills to reduce depression and free of suicide ideation. Coordinate discharge resource needs by providing referral for psychiatric treatment follow up in the community. Discharge/Continuing Care - Education Needs Education Needs: Patient Medication, Patient Coping Skills, Patient Placement options, Patient Community resources, Patient Activities of Daily Living, Patient Health Practices/Safety, Patient Personal Hygiene/Grooming, Patient Aftercare Safety Plan - Discharge Discharge Criteria: Tolerates medication w/o severe side effects, Free of Suicidal thoughts, Normal sleep pattern, Ability to care for self, Reduction of target symptoms Discharge to:: [facility] - Additional Comments 11/13/17 12:10 Pt seen and discussed in team meeting. Reason for hospitalization reviewed and discussed. Pt scheduled for discharge this morning. Pt provided with list of local shelters and resources for the homeless in [facility]. At time of team meeting, pt denied SI and HI. Pt discharged AMA. Pt reported having no questions fo the interdisciplinary team members. - Treatment Team Participation Discussed with Family/SO: No Was Patient/Family/SO present at Treatment Team Meeting: Yes
[2017-11-13 05:48] VITALS: BP 110/76; PULSE 61; RESP 19; TEMP 97.6
--- NOTE | 2017-11-13 08:42 | PCM.PYCHDC ---
Mental Status Examination - Mental Status Examination Orientation: Person, Place, Situation, Time Memory: Intact Mood: Neutral Speech: Appropriate Attention: WNL Concentration: WNL Association: WNL Fund of Knowledge: WNL Formal Thought Process: No Impairment Description of patient's judgement and insight: Fair I/J Psychotic Thoughts and Behaviors: No AH/VH/paranoia/delusions Suicidal Ideation: No Current Homicidal Ideation?: No Discharge Summary - Discharge Note Reason for Hospitalization: 62 yo male w/ h/o possible mood disorder, homeless, presents s/p stating that he attempted suicide by overdosing on pills. Patient has given several different conflicting stories. He states that he does not know how many pills he took or which pills. He was recently hospitalized on [facility] and was discharged stating he would take a flight to [place] that day. Now he states he took a flight to [place] and then drove back up with friends. Patient is very irritable when confronted w/ the inconsistencies in his story. He is now demanding to be discharged. He did not take any medications when he was discharged from the last hospitalization or fill the prescription. He is now refusing psychiatric medications and treatment and submitted a 48 hr letter requesting to be discharged. He denies acute depression/anxiety/AH/VH/paranoia/ delusions/SI/HI. Laboratory Data: Abnormal Lab Results 11/12/17 11/12/17 06:10 06:10 Hemoglobin A1c 5.5 RPR Nonreactive Consultations:: List each consultation separately and include: 1. Reason for request. 2. Findings. 3. Follow-up Consultations: Medicine consult Summary of Hospital Course include:: 1. Description of specific treatment plan utilized for patients during their course of treatmen. 2. Summarize the time- course for resolution of acute symptoms and/or regressed behaviors. 3. Describe issues identified and worked on during hospitalization. 4. Describe medication utilized. 5. Describe medical problems identified and treated. 6. Reassessment of suicide risk Summary of Hospital Course: Patient was admitted to the psychiatry unit. He gave conflicting information to several people and seems intentionally manipulative. He has been irritable with others and started verbal arguments with staff and other patients. Patient exaggerated symptoms to gain psychiatric admission. He now denies depression/anxiety/AH/VH/SI/HI/paranoia/delusions. He is refusing all treatment and psychiatric medications. Patient will be discharged AMA. Benefits of staying for psychiatric treatment and risks of leaving AMA explained to the patient. - Final Diagnosis (DSM 5) Condition upon Discharge: STABLE DSM 5: Malingering; r/o Mood Disorder NOS Disposition: AGAINST MEDICAL ADVICE Follow-up Treatment Plan: Malingering; r/o Mood Disorder NOS -Discharge AMA -Patient refusing all psychiatric treatment and medications - Smoking Cessation Smoking Cessation Medication prescribed: No Reason for not providing: Patient declined - Antipsychotic Medications Pt discharged on 2 or more routine antipsychotic medications: No
== END 2017-11-13 11:00 | disposition left against medical advice (07) | DRG 430 ==
LOC: H.ER 18:52 → H.STEP 19:07
PROVIDERS: ADMIT Psychiatry & Neurology Psychiatry; ATTEND Psychiatry & Neurology Psychiatry
PROC: GZHZZZZ Group Psychotherapy (ICD-10-PCS; principal; 2017-11-11)
PROC: GZ58ZZZ Individual Psychotherapy, Cognitive-Behavioral (ICD-10-PCS; 2017-11-11)
DX: F39 Unspecified mood [affective] disorder (principal); R45.851 Suicidal ideations; Z76.5 Malingerer [conscious simulation]; Z87.891 Personal history of nicotine dependence; Z59.0 Homelessness; Z87.442 Personal history of urinary calculi